=== PATIENT | female | born 1950 | race Caucasian/White ===

== ENCOUNTER 2016-11-02 12:04 | Emergency (ER) | payer MEDICAID ==
[2016-11-02 12:15] VITALS: BMI 28.3
[2016-11-02 12:17] VITALS: TEMP 97.7
--- NOTE | 2016-11-02 12:27 | EDPRACDOC ---
- General Information Chief Complaint: Chest Wall Pain Stated Complaint: CHEST PAIN Time Seen by Provider: 11/02/16 12:18 Information Source: Patient Mode of Arrival: Ambulance Home Medications: Home Medications Albuterol Sulfate [Proventil Hfa] 1 - 2 puff INH Q4H PRN 11/02/16 Alendronate Sodium [Fosamax] 70 mg PO MO 11/02/16 Fluticasone/Salmeterol [Advair 500-50] 1 inh INH BID 11/02/16 Furosemide [Lasix] 20 mg PO DAILY 11/02/16 Hydrocodone Bit/Homatropine [Hycodan Syrup] 5 ml PO Q6 PRN #120 syrup 11/02/16 Lisinopril [Prinivil] 10 mg PO DAILY 11/02/16 Mirtazapine [Remeron] 30 mg PO HS 11/02/16 Prednisone [Deltasone, Orasone] 40 mg PO DAILY 5 Days 11/02/16 Tiotropium [place] [Spiriva] 18 mcg IH DAILY 11/02/16 Trazodone HCl 100 mg PO QHS 11/02/16 Venlafaxine HCl ER [Effexor XR] 150 mg PO DAILY 11/02/16 Allergies/Adverse Reactions: Allergies Allergy/AdvReac Type Severity Reaction Status Date / Time No Known Allergies Allergy Verified 11/02/16 12:14 - History of Present Illness Onset: last PM HPI: PT COMPLAINS OF SHARP, ACHING PAIN IN THE CENTER OF HER CHEST, (POINTS TO EPIGASTRIC AREA), BEGAN LAST NIGHT, FEELS SOBR, DENIES COUGH, NO N/V, NO FEVER. Chest Pain Location: Reports: Substernal Pain Radiation: Reports: None Symptoms Occur: Reports: Suddenly, At Rest Cardiac Risk Factors: Reports: Smoker, Hyperlipidemia, Hypertension Cardiac History of: Reports: None PE Risk Factors: Reports: None Medications within 24 Hours: Reports: None Prehospital Care: Reports: O2, IV, EKG, Monitor, ASA Pain Came On: Reports: Suddenly Pain Status: Present Now Pain Description: Reports: Sharp Pain Severity: Moderate Pain Worsens With: Reports: Coughing, Breathing Pain Improves With: Reports: Nothing Associated Signs and Symptoms: Reports: SOB. Denies: Palpitations, Diaphoretic , Abdominal Pain, Nausea, Vomiting, Calf Pain or Swelling, Chest Rash ED Past Medical History - History Reviewed Yes Nurses notes reviewed and agree except as marked - Patient Medical History Cardiac History: Reports: Hypertension, Hypercholesterolemia Respiratory History: Reports: COPD Psychological History: Reports: Depression - Social Medical History Smoking Status: Heavy tobacco smoker (5 or more cigarettes/day or daily pipe/ cigar) ETOH: None Substance Abuse: None EDM Review of Systems - Review of Systems Constitutional: negative: Chills, Fever Eyes: negative: Blurred Vision, Double Vision Ears: negative: Drainage Throat: negative: Pain Nose: negative: Congestion, Discharge Respiratory: Shortness of Breath, Wheezing. negative: Cough Cardiovascular: Chest Pain. negative: Palpitations Gastrointestinal: negative: Diarrhea, Nausea, Pain, Vomiting Genitourinary: negative: Dysuria, Frequency Neurological: negative: Dizziness, Headache, Numbness, Weakness Musculoskeletal: No Symptoms Reported Integumentary: No Symptoms Reported - Physical Exam Constitutional: Alert (Awake), No apparent distress Oriented to: Time, Person, Place Last recorded Vital Signs: Last Vital Signs Temp 97.7 F 11/02/16 12:15 Pulse 83 11/02/16 12:15 Resp 28 H 11/02/16 12:15 BP 130/88 11/02/16 12:15 Pulse Ox 92 11/02/16 12:15 Oxygen Pulse Oxygen Saturation 92 O2 Device Nasal Cannula Oxygen Flow Rate 2 Fraction of Inspired Oxygen ( FIO2) - HEENT Head: Normal ( normocephalic) Eye Exam: Normal (PERRL, EOMI, Sclera white) Oropharynx: Normal (Pharynx:Moist without exudate,Gums-no swelling) Tympanic Membrane: Normal ENT EAC: Normal TMJ: Normal Nose: No Symptoms Reported (septum midline) Neck: Normal (FROM, trachea at midline) - Respiratory/Cardiovascular Respiratory: Accessory Muscle Use, Wheezes Cardiovascular: Normal (RRR without murmur, gallop or rub) - GI Auscultation: Normal (NABS) Palpation: Normal (Soft,No rebound or guarding, non distended) Tenderness: Non tender Shaikh's Sign: Negative - Musculoskeletal Back: Normal (Non-Tender) Extremities: Normal (Normal tone, Pulses 2+ No cyanosis or edema, FROM) - Integumentary Skin: Normal, Warm, Dry Lymphatics: Normal (no adenopathy) - Neurologic Memory Impaired: Normal Motor Function: Normal (Normal tone, Pulses 2+ No cyanosis or edema, FROM) Cranial Nerve: Normal (CN II-X11 intact sensation, strength 5/5) Cerebellar: Normal Mood Description: Normal Perception: Normal ED Chest Pain Exam - Respiratory/Cardiovascular Respiratory: Wheezes Cardiovascular/Chest: Normal Radial Pulse: Normal Carotid Arteries: Normal. negative: Bruits, Thrill Edema: negative: 1+, 2+, 3+, 4+, 5, 6 Chest Palpation: Tender, Reproduces Pain - Differential Diagnosis Angina, Chest wall pain, Costochondritis, Esophageal reflux/spasm, Myocardial infarction, Pericarditis, Pancreatitis, Pleuritis, Pneumonia - Action Patient received Aspirin within last 24 hours?: No ASA given in the ED: No Aspirin therapy held due to: Other-specify below* (NOT INDICATED) Patient received Beta Rahel within last 24hrs: No Beta Rahel held due to: Other-specify below* (NOT INDICATED) - Re-evaluation Re-evaluation 1 Re-evaluation Time: 14:01 (CHEST PAIN RESOLVED, BREATHING BETTER) Re-evaluation 2 Re-evaluation Time: 14:47 (CHEST PAIN RESOLVED AFTER NEB, NO COMPLAINTS AT THIS TIME. DISCUSSED WITH DR HSIEH, HE AGREES WITH PLAN) - Results 11/02/16 12:36 11/02/16 13:15 - EKG EKG #1 EKG Time: 12:20 -: Yes EKG interpreted by me Rate: bpm: 76 [place]: Normal Rhythm: NSR Block: None Hypertrophy: None ST: Normal Comparison: 08/02/11 (NO CHANGE) - Diagnostic Imaging CXR Image interpreted by: Radiologist CHEST - 2 VIEW COMPARISON: 12/02/2015 FINDINGS: Cardiac shadow is enlarged but stable from the prior exam when accounting for the AP technique. Lungs are clear bilaterally. The bony structures are within normal limits. No acute abnormality noted. IMPRESSION: No acute abnormality seen. Decision Time to Discharge: 14:54 - Departure Disposition: Home Condition: Stable Final Diagnosis: COPD exacerbation, Chest wall pain, Tobacco abuse Instructions: Chest Wall Pain, COPD (Chronic Obstructive Pulmonary Disease) (ED ) Education/Counseling Given To: Patient Education/Counseling Given Regarding: Diagnosis, Treatment, Prognosis, Follow Up Referrals: Alise Arita MD [Primary Care Provider] - One Week Prescriptions: Hydrocodone Bit/Homatropine [Hycodan Syrup] 5 ml PO Q6 PRN #120 syrup PRN Reason: Cough Prednisone [Deltasone, Orasone] 40 mg PO DAILY 5 Days Additional Instructions: Rest, drink plenty of fluids, use Tylenol every 4 hours and Motrin every 6 hours as needed for pain or fever, return to the ED for any worsening symptoms or concerns. PLEASE STOP SMOKING!!
[2016-11-02] MEDS ORDERED: Albuterol/Ipratropium Neb 3 ML NEB NEB ONE (12:28)
[2016-11-02] MEDS ORDERED: SODIUM CHLORIDE 0.9% 10 ML FLUSH FLUSH PRN (12:28)
[2016-11-02] MEDS ORDERED: METHYLPREDNISOLONE 125 MG/2 ML VIAL IV ONE (12:28)
[2016-11-02 12:49] LABS: AUTOMATED BASOPHIL 0.7 % (0-2); AUTOMATED EOSINOPHIL 0.6 % (0-5); AUTOMATED LYMPH 11.3 % (17-44); AUTOMATED MONOCYTE 6.4 % (3-10); MPV 9.7 fL (7.4-10.4)
[2016-11-02 12:51] LABS: ALLEN'S TEST PASS; BEb 3.7 (+/- 2); TCO2 31.2 MMOL/L (23-27)
[2016-11-02 12:52] LABS: ABG Draw Site Right Radial
[2016-11-02 13:04] LABS: PARTIAL THROMB. TIME 21.7 SEC (22-35)
[2016-11-02 13:50] LABS: BLOOD UREA NITROGEN 14 MG/DL (7-17); CALCIUM 10.8 MG/DL (8.4-10.2); CALCULATED OSMOLALITY 274 MOs/Kg (270-290); CHLORIDE 102 mEq/L (98-107); GLUCOSE 107 MG/DL (70-99); SODIUM LEVEL 142 mEq/L (137-146); TOTAL PROTEIN 7.8 G/DL (6.3-8.2)
--- NOTE | 2016-11-02 14:41 | DIRPT ---
CLINICAL DATA: Shortness of breath with chest pain, initial encounter EXAM: CHEST - 2 VIEW COMPARISON: 12/02/2015 FINDINGS: Cardiac shadow is enlarged but stable from the prior exam when accounting for the AP technique. Lungs are clear bilaterally. The bony structures are within normal limits. No acute abnormality noted. IMPRESSION: No acute abnormality seen. Electronically Signed By: Dequan Gamboa M.D. On: 11/02/2016 14:39
[2016-11-02 16:17] VITALS: BP 133/72; PULSE 77
== END 2016-11-02 16:05 | disposition home or self-care (01) ==
LOC: ED 12:04
DX: J44.1 Chronic obstructive pulmonary disease with (acute) exacerbation (principal); R07.89 Other chest pain; I10 Essential (primary) hypertension; E78.00 Pure hypercholesterolemia, unspecified; F17.200 Nicotine dependence, unspecified, uncomplicated; Z79.899 Other long term (current) drug therapy
CPT/HCPCS: 36415; 36600; 71020; 80053; 82803; 83690; 83880; 84484; 85025; 85610; 85730; 87040; 93005; 94640; 96374; 99284; J2930; J7620